=== PATIENT | female | born 2000 | race Caucasian/White ===

== ENCOUNTER → 2025-04-28 | Outpatient (CLI) | payer OTHER ==
[2025-04-28 15:46] LABS: BASO # 0.0 10*3/uL (0.0-0.1); BASO % 0.4 % (0.0-1.0); EOS # 0.2 10*3/uL (0.0-0.4); EOS % 2.6 % (1.0-4.0); MEAN CELL VOLUME 70.2 fl (81.0-99.0); MEAN CORPUSCULAR HGB 20.1 pg (27.0-31.0); MEAN PLATELET VOLUME 8.9 fl (9.6-12.3); MONO # 0.4 10*3/uL (0.1-1.0); MONO % 4.3 % (3.0-9.0); NEUT # 5.6 10*3/uL (2.3-7.9); NEUT % 66.8 % (47.0-73.0); NUCLEATED RED BLOOD CELL 0.0 % (0.0-0.0); NUCLEATED RED BLOOD CELL 0.0 10*3/uL (0.0-0.0); PLATELET COUNT AUTOMATED 267 10*3/uL (130-400); RED CELL DISTRI WIDTH 17.0 % (0-14.5)
[2025-04-28 16:45] LABS: BETA-HCG, QUANT < 3.0 mIU/mL (3-10)
== END | disposition home or self-care (01) ==
LOC: LAB 15:20
PROVIDERS: ATTEND Nurse Practitioner Women's Health
DX: N93.9 Abnormal uterine and vaginal bleeding, unspecified (principal); R63.5 Abnormal weight gain; L68.0 Hirsutism; N39.3 Stress incontinence (female) (male); R53.83 Other fatigue

== ENCOUNTER → 2025-05-07 | Outpatient (CLI) | payer OTHER | END | disposition home or self-care (01) | LOC: US 11:00 | PROVIDERS: ATTEND Nurse Practitioner Women's Health | DX: R93.89 Abnormal findings on diagnostic imaging of other specified body structures (principal); N83.8 Other noninflammatory disorders of ovary, fallopian tube and broad ligament; N93.9 Abnormal uterine and vaginal bleeding, unspecified ==

== ENCOUNTER → 2025-06-21 | Day surgery (SDC) | payer OTHER ==
[~2025-06-21] VITALS: Ht 170.1 cm; Wt 116.6 kg
[~2025-06-21] MED LIST: Dexamethasone Sodium Phospha 4 MG/ML VIAL IV ONE; Lactated Ringer's Solution 1,000 ML IV ONE; Lidocaine Hydrochloride 2% 5 ML SDV IV ONE; Midazolam Hydrochloride 2 MG/2 ML VIAL IV ONE; Ondansetron Hydrochloride 4 MG/2 ML VIAL IV ONE; PROPOFOL 200 MG/20 ML VIAL IV ONE; SEVOFLURANE 250 ML BOT INH ONE; SILVER NITRATE APPLICATOR 1 EACH APP T ONE
[2025-06-21 07:22] VITALS: BP 147/88
[2025-06-21 08:21] VITALS: BP 129/73
[2025-06-21 08:36] VITALS: BP 128/72
[2025-06-21 08:51] VITALS: BP 128/74
[2025-06-21 09:06] VITALS: BP 136/79
[2025-06-21 09:21] VITALS: BP 142/79
== END | disposition home or self-care (01) ==
LOC: SDC 06-17 11:00
PROVIDERS: ATTEND Obstetrics & Gynecology
DX: N93.9 Abnormal uterine and vaginal bleeding, unspecified (principal); Z88.8 Allergy status to other drugs, medicaments and biological substances; N84.0 Polyp of corpus uteri; N72 Inflammatory disease of cervix uteri; J45.909 Unspecified asthma, uncomplicated; D50.9 Iron deficiency anemia, unspecified; U07.0 Vaping-related disorder; E66.813 Obesity, class 3; Z68.41 Body mass index [BMI] 40.0-44.9, adult; Z90.89 Acquired absence of other organs; Z79.899 Other long term (current) drug therapy